=== PATIENT | female | born 1990 | race Hispanic/Latino ===

== ENCOUNTER 2017-04-26 01:36 | Emergency (ER) | payer SELFPAY ==
[2017-04-26 01:58] VITALS: TEMP 97.7
--- NOTE | 2017-04-26 02:50 | ED PDOC ---
Arrival/HPI - General Chief Complaint: Eye Problem Time Seen by Provider: 04/26/17 02:22 Historian: Patient - History of Present Illness Narrative History of Present Illness (Text): 04/26/17 02:47 Juana Mae is a 26 year old female, with no significant past medical history, presents to the emergency department complaining of burning sensation to bilateral eyes associated with photophobia and blurred vision since 6 pm yesterday evening. States that symptoms presented yesterday after she removed her makeup using a makeup removal wipe. States she flushed eyes under running water multiple times, but reports of no relief. Denies any fever, chills, headache, or any other complaints at this time. Time/Duration: Other (Since 6 pm yesterday ) Symptom Onset: Sudden Severity Level: Mild Activities at Onset: Light Past Medical History - Provider Review Nursing Documentation Reviewed: Yes - Psychiatric Hx Substance Use: No Family/Social History - Physician Review Nursing Documentation Reviewed: Yes Family/Social History: No Known Family HX Smoking Status: Never Smoked Hx Alcohol Use: No Hx Substance Use: No Allergies/Home Meds Allergies/Adverse Reactions: Allergies No Known Allergies Allergy (Verified 04/26/17 01:54) Review of Systems - Review of Systems Eyes: Vision Changes (blurred vision ), Photophobia, Eye Pain (burning sensation to both eyes ) Physical Exam Vital Signs Reviewed: Yes Vital Signs Temp Pulse Resp BP Pulse Ox 04/26/17 05:01 86 17 125/76 100 04/26/17 03:20 86 18 128/78 100 04/26/17 01:55 97.7 F 88 18 129/81 99 Temperature: Afebrile Blood Pressure: Normal Pulse: Regular Respiratory Rate: Normal Appearance: Positive for: Well-Appearing, Non-Toxic, Comfortable Pain Distress: None Mental Status: Positive for: Alert and Oriented X 3 - Systems Exam Head: Present: Atraumatic, Normocephalic Pupils: Present: PERRL Conjunctiva: Present: Normal. No: Injected Neurological: Present: GCS=15, CN II-XII Intact, Speech Normal, Motor Func Grossly Intact, Normal Sensory Function Skin: Present: Warm, Dry, Normal Color. No: Rashes Psychiatric: Present: Alert, Oriented x 3, Normal Insight, Normal Concentration Medical Decision Making ED Course and Treatment: 04/26/17 02:51 Impression: A 26 year old female who presents to the emergency department complaining burning sensation to bilateral eyes since yesterday evening. Differential Diagnosis include but are not limited to: conjunctivitis vs. corneal abrasion Plan: -- Visual Acuity test -- Reassess and disposition Progress Notes: 04/26/17 03:49 VA: R: 20/40 L: 20/40 B: 20/30 Patient had small amount of fluorescein uptake at 6'O clock in right eye. Patient states she feels better after initial irrigation; however, still has some burning sensation. - Medication Orders Current Medication Orders: Discontinued Medications Ciprofloxacin (Ciloxan 0.3% Ophth Soln) 1 drop OD ONCE STA Stop: 04/26/17 04:31 Last Admin: 04/26/17 04:55 Dose: 1 drop Tetracaine HCl (Tetracaine 0.5% Ophth Soln) Confirm Administered Dose 2 drop .ROUTE .STK-MED ONE Stop: 04/26/17 03:42 - Scribe Statement The provider has reviewed the documentation as recorded by the Quirino Napoles Provider Attestation: All medical record entries made by the Gitaibitalia were at my direction and personally dictated by me. I have reviewed the chart and agree that the record accurately reflects my personal performance of the history, physical exam, medical decision making, and the department course for this patient. I have also personally directed, reviewed, and agree with the discharge instructions and disposition. Disposition/Present on Arrival - Present on Arrival Any Indicators Present on Arrival: No History of DVT/PE: No History of Uncontrolled Diabetes: No Urinary Catheter: No History of Decub. Ulcer: No History Surgical Site Infection Following: None - Disposition Have Diagnosis and Disposition been Completed?: Yes Diagnosis: Irritation of both eyes, Corneal abrasion, right Disposition: HOME/ ROUTINE Disposition Time: 04:45 Patient Plan: Discharge Condition: GOOD Additional Instructions: Apply the drops as prescribed. Make sure you follow up with ophthalmology later on today. Return to the emergency department if any new concerning symptoms. Prescriptions: Ciprofloxacin 0.3% [Ciloxan 0.3% Ophth SOLN] 2 drop OD Q4H #1 bottle Olopatadine 0.1% Opht [Patanol 0.1% Opht Soln] 1 drop OU BID PRN #1 bottle PRN Reason: eye irritation Referrals: Ismael Stanley MD [Staff Provider] - Follow up with primary
[2017-04-26 03:20] VITALS: PULSE 86; O2SAT 100
[2017-04-26] MEDS ORDERED: Tetracaine 0.5% Ophth 2 ML BOTTLE ONE (03:41)
[2017-04-26] MEDS ORDERED: Ciprofloxacin 0.3% OPTH SOLN OD STA (04:30)
[2017-04-26 05:02] VITALS: BP 125/76; RESP 17
== END 2017-04-26 05:00 | disposition home or self-care (01) ==
LOC: ED 01:36
DX: S05.01XA Injury of conjunctiva and corneal abrasion without foreign body, right eye, initial encounter (principal); X58.XXXA Exposure to other specified factors, initial encounter; Y93.E8 Activity, other personal hygiene; Y92.89 Other specified places as the place of occurrence of the external cause